=== PATIENT | female | born 1950 | race Two or more races ===

== ENCOUNTER 2021-04-03 12:18 | Emergency (ER) | payer MEDICAID, OTHER ==
[~2021-04-03] VITALS: Ht 165.1 cm; Wt 61.2 kg
[2021-04-03 12:22] VITALS: BP 150/81
== END 2021-04-03 15:31 | disposition home or self-care (01) ==
LOC: ER 12:18
DX: J02.9 Acute pharyngitis, unspecified (principal); E11.9 Type 2 diabetes mellitus without complications; E78.5 Hyperlipidemia, unspecified
CPT/HCPCS: 71046; 99283; J7030